=== PATIENT | female | born 1985 | race Hispanic/Latino ===

== ENCOUNTER 2024-11-12 10:53 | Day surgery (SDC) | payer BC ==
[2024-11-12 12:41] VITALS: BMI 34.2
== END 2024-11-12 12:27 | disposition home or self-care (01) ==
LOC: CSHLD/OP 10:53
PROVIDERS: ATTEND Obstetrics & Gynecology
DX: Z36.89 Encounter for other specified antenatal screening (principal); O47.03 False labor before 37 completed weeks of gestation, third trimester; O09.43 Supervision of pregnancy with grand multiparity, third trimester; O30.103 Triplet pregnancy, unspecified number of placenta and unspecified number of amniotic sacs, third trimester; Z3A.33 33 weeks gestation of pregnancy; Z79.82 Long term (current) use of aspirin; Z79.899 Other long term (current) drug therapy; Z88.0 Allergy status to penicillin
CPT/HCPCS: 59025; 99282

== ENCOUNTER 2024-11-13 11:36 | Day surgery (SDC) | payer BC ==
[2024-11-13 12:18] VITALS: BMI 37.7
== END 2024-11-13 13:45 | disposition home or self-care (01) ==
LOC: CSHLD/OP 11:36
PROVIDERS: ATTEND Obstetrics & Gynecology
DX: Z36.89 Encounter for other specified antenatal screening (principal); O09.43 Supervision of pregnancy with grand multiparity, third trimester; O09.523 Supervision of elderly multigravida, third trimester; Z3A.33 33 weeks gestation of pregnancy
CPT/HCPCS: 99281